=== PATIENT | male | born 1990 | race Caucasian/White ===

== ENCOUNTER 2021-05-08 16:48 | Inpatient (IN) | payer OTHER ==
[2021-05-08] MEDS ORDERED: chlordiazePOXIDE HCL 25 MG CAPSULE PO ONE (17:36)
[2021-05-08] MEDS ORDERED: chlordiazePOXIDE HCL 10 MG CAPSULE ONE (17:42)
[2021-05-08 18:15] LABS: BASO % 0.7 % (0-2.0); EOS % 0.1 % (0-4.5); HEMATOCRIT 40.4 % (35.4-49); HEMOGLOBIN 13.6 GM/dL (11.7-16.9); LYMPH % 7.6 % (8-40); MCH 31.4 pg (25.7-33.7); MCHC 33.7 g/dl (32.0-35.9); MEAN PLT VOLUME 7.1 fl (7.5-11.1); MONO % 12.1 % (3.8-10.2); NEUT % 79.5 % (42.8-82.8); PLATELET COUNT 165 10^3/uL (134-434); RBC 4.34 M/mm3 (4.00-5.60); RDW 13.8 % (11.9-15.9); WHITE BLOOD COUNT 9.7 K/mm3 (4.0-10.0)
[2021-05-08 18:34] LABS: CHLORIDE 98 mmol/L (98-107); SODIUM 137 mmol/L (136-145)
[2021-05-08 18:36] LABS: ALBUMIN 4.6 g/dl (3.4-5.0); ANION GAP 10 MMOL/L (8-16); BLOOD UREA NITROGEN 9.8 mg/dL (7-18); CALCIUM 9.9 mg/dL (8.5-10.1); CO2 29 mmol/L (21-32); GLUCOSE,RANDOM 113 mg/dL (74-106)
[2021-05-08 18:39] LABS: CREATININE 0.7 mg/dL (0.55-1.3)
[2021-05-08 18:40] LABS: SGOT/AST 184 U/L (15-37); SGPT/ALT 167 U/L (13-61)
[2021-05-08 18:41] LABS: BILIRUBIN,TOTAL 1.1 mg/dL (0.2-1); TOT PROT 8.2 g/dl (6.4-8.2)
[2021-05-08 18:42] LABS: ALK PHOS 104 U/L (45-117)
[2021-05-08] MEDS ORDERED: FOLIC ACID INJECTION - 1 MG, THIAMINE HCL 100 MG, MULTIVIT INJECTION ADULT 10 ML in SOD... IVPB ONE (19:22)
[2021-05-08] MEDS ORDERED: LACTULOSE 20 GM/30 ML UDC (FOR ORAL USE ONLY) PO ONE (19:31)
[2021-05-08] MEDS ORDERED: LACTULOSE 20 GM/30 ML UDC (FOR ORAL USE ONLY) ONE (19:48)
[2021-05-08] MEDS ORDERED: SODIUM CHLORIDE IVPB SCH (23:15)
[2021-05-08] MEDS ORDERED: THIAMINE HCL IVPB SCH (23:15)
[2021-05-08] MEDS ORDERED: LORazepam 1 MG TABLET PO PRN (23:19)
[2021-05-08] MEDS ORDERED: LOSARTAN POTASSIUM 25 MG TABLET PO ONE (23:22)
[2021-05-08 23:28] LABS: COCAINE, UR NEGATIVE (NEGATIVE); METHADONE, UR NEGATIVE (NEGATIVE); OPIATES, URI NEGATIVE (NEGATIVE); URINE AMPHETAMINES NEGATIVE (NEGATIVE); URINE BARBITURATES NEGATIVE (NEGATIVE); URINE BENZODIAZEPINES NEGATIVE (NEGATIVE)
[2021-05-08 23:29] LABS: PHENCYCLIDINE,URINE NEGATIVE (NEGATIVE)
[2021-05-09] MEDS ORDERED: LOSARTAN POTASSIUM 50 MG TABLET ONE (00:07)
[2021-05-09] MEDS ORDERED: THIAMINE HCL 200 MG/2 ML VIAL ONE (00:07)
[2021-05-09] MEDS ORDERED: LORazepam 1 MG TABLET ONE (00:28)
[2021-05-09 00:55] LABS: INR 1.04 (0.83-1.09); PROTHROMBIN TIME (PATIENT) 12.8 SEC (9.7-13.0)
[2021-05-09] MEDS ORDERED: LACTULOSE 20 GM/30 ML UDC (FOR ORAL USE ONLY) PO PRN (02:00)
[2021-05-09 05:53] LABS: HEMATOCRIT 38.7 % (35.4-49); HEMOGLOBIN 12.9 GM/dL (11.7-16.9); MCH 31.7 pg (25.7-33.7); MCHC 33.3 g/dl (32.0-35.9); MEAN CELL VOLUME 95.3 fl (80-96); MEAN PLT VOLUME 7.2 fl (7.5-11.1); PLATELET COUNT 131 10^3/uL (134-434); RBC 4.07 M/mm3 (4.00-5.60); WHITE BLOOD COUNT 5.5 K/mm3 (4.0-10.0)
[2021-05-09 06:14] LABS: ALBUMIN 3.7 g/dl (3.4-5.0); BLOOD UREA NITROGEN 6.3 mg/dL (7-18); CALCIUM 8.5 mg/dL (8.5-10.1); MAGNESIUM 1.8 mg/dL (1.8-2.4)
[2021-05-09 06:15] LABS: CHOLESTEROL 246 mg/dL (50-200); TRIGLYCERIDES 66 mg/dL (0-150)
[2021-05-09 06:16] LABS: LDL CHOLESTEROL (ONLY SJRH) 110 mg/dL (5-100)
[2021-05-09 06:17] LABS: CREATININE 0.5 mg/dL (0.55-1.3); HDL CHOLESTEROL 128 mg/dL (40-60)
[2021-05-09 06:18] LABS: BILIRUBIN,TOTAL 1.7 mg/dL (0.2-1); PHOSPHOROUS 3.7 mg/dL (2.5-4.9)
[2021-05-09 06:19] LABS: TOT PROT 6.7 g/dl (6.4-8.2)
[2021-05-09] MEDS ORDERED: FOLIC ACID 1 MG TABLET (FP) ONE (09:28)
[2021-05-09] MEDS: FOLIC ACID 1 MG TABLET (FP) PO SCH (09:58)
[2021-05-09] MEDS ORDERED: THIAMINE HCL 100 MG TABLET (FP) PO SCH (10:00)
[2021-05-09 10:48] VITALS: BMI 21.5
[2021-05-09] MEDS: SODIUM CHLORIDE 1,000 ML IV SCH (14:01)
[2021-05-09 18:15] LABS: URINE APPEARANCE CLEAR; URINE BILIRUBIN NEGATIVE (NEGATIVE); URINE COLOR YELLOW; URINE GLUCOSE (UA) TRACE (NEGATIVE); URINE KETONE NEGATIVE (NEGATIVE); URINE LEUK ESTERASE NEGATIVE (NEGATIVE); URINE NITRITE NEGATIVE (NEGATIVE); URINE PROTEIN NEGATIVE (NEGATIVE)
[2021-05-09] MEDS ORDERED: ACETAMINOPHEN 325 MG TABLET (FP) PO PRN (21:06)
[2021-05-10] MEDS: SODIUM CHLORIDE 1,000 ML IV SCH ×3 (00:16→19:45)
[2021-05-10 09:22] LABS: HEMATOCRIT 39.8 % (35.4-49); HEMOGLOBIN 13.5 GM/dL (11.7-16.9); MCH 31.9 pg (25.7-33.7); MCHC 33.8 g/dl (32.0-35.9); MEAN CELL VOLUME 94.3 fl (80-96); PLATELET COUNT 140 10^3/uL (134-434); RBC 4.22 M/mm3 (4.00-5.60); RDW 13.6 % (11.9-15.9); WHITE BLOOD COUNT 6.5 K/mm3 (4.0-10.0)
[2021-05-10 10:01] LABS: ALBUMIN 3.6 g/dl (3.4-5.0)
[2021-05-10 10:04] LABS: BLOOD UREA NITROGEN 8.2 mg/dL (7-18); CALCIUM 8.8 mg/dL (8.5-10.1); PHOSPHOROUS 3.7 mg/dL (2.5-4.9)
[2021-05-10 10:06] LABS: BILIRUBIN,TOTAL 1.5 mg/dL (0.2-1); TOT PROT 6.9 g/dl (6.4-8.2)
[2021-05-10 10:11] LABS: MAGNESIUM 1.9 mg/dL (1.8-2.4)
[2021-05-10 10:12] LABS: CREATININE 0.5 mg/dL (0.55-1.3)
[2021-05-10] MEDS: FOLIC ACID 1 MG TABLET (FP) PO SCH (10:22)
[2021-05-11 08:59] LABS: HEMATOCRIT 40.9 % (35.4-49); HEMOGLOBIN 13.8 GM/dL (11.7-16.9); MCH 31.7 pg (25.7-33.7); MCHC 33.8 g/dl (32.0-35.9); MEAN CELL VOLUME 93.9 fl (80-96); PLATELET COUNT 176 10^3/uL (134-434); RBC 4.36 M/mm3 (4.00-5.60); RDW 13.7 % (11.9-15.9); WHITE BLOOD COUNT 6.8 K/mm3 (4.0-10.0)
[2021-05-11 09:15] LABS: ALBUMIN 3.9 g/dl (3.4-5.0); BLOOD UREA NITROGEN 11.4 mg/dL (7-18); CALCIUM 9.4 mg/dL (8.5-10.1)
[2021-05-11 09:18] LABS: ALBUMIN 3.9 g/dl (3.4-5.0); CREATININE 0.5 mg/dL (0.55-1.3)
[2021-05-11 09:19] LABS: BILIRUBIN,TOTAL 0.9 mg/dL (0.2-1); TOT PROT 7.2 g/dl (6.4-8.2)
[2021-05-11 09:21] LABS: BILIRUBIN,DIRECT 0.3 mg/dL (0.0-0.2)
[2021-05-11 09:23] LABS: BILIRUBIN,TOTAL 0.8 mg/dL (0.2-1); TOT PROT 7.2 g/dl (6.4-8.2)
[2021-05-11] MEDS: FOLIC ACID 1 MG TABLET (FP) PO SCH (09:58)
[2021-05-11 12:01] LABS: HIV INTERPRETATION NEGATIVE (NEGATIVE)
[2021-05-11 12:46] LABS: INR 0.99 (0.83-1.09)
[2021-05-11 12:49] LABS: ACTIVATED PTT 26.6 SECONDS (25.2-36.5)
[2021-05-11 14:10] LABS: HEP B CORE AB, TOT Positive (Negative)
[2021-05-12 08:28] LABS: HEMATOCRIT 40.5 % (35.4-49); HEMOGLOBIN 13.7 GM/dL (11.7-16.9); MCH 31.7 pg (25.7-33.7); MCHC 33.9 g/dl (32.0-35.9); MEAN CELL VOLUME 93.6 fl (80-96); MEAN PLT VOLUME 7.5 fl (7.5-11.1); PLATELET COUNT 182 10^3/uL (134-434); RBC 4.33 M/mm3 (4.00-5.60); WHITE BLOOD COUNT 7.6 K/mm3 (4.0-10.0)
[2021-05-12 08:51] LABS: CALCIUM 9.4 mg/dL (8.5-10.1)
[2021-05-12 08:52] LABS: BLOOD UREA NITROGEN 14.7 mg/dL (7-18); MAGNESIUM 2.1 mg/dL (1.8-2.4)
[2021-05-12 08:54] LABS: PHOSPHOROUS 4.3 mg/dL (2.5-4.9)
[2021-05-12 08:55] LABS: BILIRUBIN,TOTAL 0.6 mg/dL (0.2-1); CREATININE 0.6 mg/dL (0.55-1.3)
[2021-05-12 08:56] LABS: TOT PROT 7.3 g/dl (6.4-8.2)
[2021-05-12] MEDS: FOLIC ACID 1 MG TABLET (FP) PO SCH (10:36)
[2021-05-13 02:31] VITALS: BP 132/66; PULSE 78; TEMP 98
== END 2021-05-12 22:10 | disposition short-term general hospital (02) | DRG 280 ==
LOC: JER 16:48 → JERBED 19:38 → J5S 05-09 10:30
PROVIDERS: ADMIT Internal Medicine; ATTEND Internal Medicine
PROC: HZ2ZZZZ Detoxification Services for Substance Abuse Treatment (ICD-10-PCS; principal; 2021-05-08)
DX: K70.10 Alcoholic hepatitis without ascites (principal); K21.9 Gastro-esophageal reflux disease without esophagitis; R94.5 Abnormal results of liver function studies; I10 Essential (primary) hypertension; E78.5 Hyperlipidemia, unspecified; R25.1 Tremor, unspecified; F10.239 Alcohol dependence with withdrawal, unspecified; E72.20 Disorder of urea cycle metabolism, unspecified; M62.82 Rhabdomyolysis; E03.9 Hypothyroidism, unspecified; F41.9 Anxiety disorder, unspecified; Z91.14 Patient's other noncompliance with medication regimen
CPT/HCPCS: 36415; 70450-TC; 74181-TC; 76700-TC; 80053; 80061; 80074; 80076; 80307; 81003; 82140; 82248; 82550; 82553; 82728; 83516; 83540; 83550; 83721; 83735; 84100; 84439; 84443; 84484; 85025; 85027; 85610; 85730; 86038; 86140; 86225; 86618; 86704; 86706; 86707; 86708; 86709; 86803; 87340; 87389; 87799; 93005; 93010; 99285-25; C9803; U0003; U0005